=== PATIENT | male | born 1950 | race Caucasian/White ===

== ENCOUNTER 2018-06-13 08:34 | Outpatient (CLI) | payer MEDICARE, BC ==
[2018-06-13] VITALS (12 sets, daily range): BP systolic 139–167; BP diastolic 77–87
[~2018-06-13] VITALS: Ht 182.9 cm; Wt 95.0 kg
[2018-06-13] MEDS ORDERED: regadenoson 0.4mg/5ml syringe IV PRN (09:40)
[2018-06-13] MEDS ORDERED: aminophylline 250mg/10ml inj. IV PRN (09:40)
[2018-06-13] MEDS ORDERED: nitroGLYCERIN 0.4mg SUBLingual tab SL PRN (09:40)
[2018-06-13] MEDS ORDERED: regadenoson 0.4mg/5ml syringe IV ONE (10:23)
[2018-06-13] MEDS ORDERED: aminophylline inj. 10 ML IV ONE (10:23)
== END 2018-06-13 23:59 | disposition home or self-care (01) ==
LOC: RAD 08:34
PROVIDERS: ATTEND Internal Medicine Cardiovascular Disease
DX: R94.39 Abnormal result of other cardiovascular function study (principal); E78.5 Hyperlipidemia, unspecified; I10 Essential (primary) hypertension; Z87.891 Personal history of nicotine dependence
CPT/HCPCS: 78452; 93017; A9500; J0280

== ENCOUNTER 2018-07-11 09:57 | Day surgery (SDC) | payer MEDICARE, BC ==
[2018-07-10 11:27] LABS: BASOPHILS % (AUTO) 0.6 % (0-1); EOSINOPHILS # (AUTO) 0.4 X10'3 (0-0.9); EOSINOPHILS % (AUTO) 6.9 % (0-6); HEMATOCRIT 41.8 % (42.0-52.0); LYMPHOCYTES # (AUTO) 1.5 X10'3 (1.1-4.8); LYMPHOCYTES % (AUTO) 26.4 % (21-51); MEAN CORPUSCULAR HEMOGLOBIN 31.7 PG (27.0-31.0); MEAN CORPUSCULAR HGB CONC 33.4 g/dL (33.0-36.5); MEAN CORPUSCULAR VOLUME 94.8 FL (78-98); MEAN PLATELET VOLUME 6.9 FL (7.4-10.4); MONOCYTES # (AUTO) 0.5 X10'3 (0-0.9); MONOCYTES % (AUTO) 9.7 % (2-12); NEUTROPHILS # (AUTO) 3.2 X10'3 (1.8-7.7); NEUTROPHILS % (AUTO) 56.4 % (42-75); PLATELET COUNT 263 X10'3 (140-440); RED BLOOD COUNT 4.41 X10'6 (4.70-6.10); RED CELL DISTRIBUTION WIDTH 13.5 % (11.5-14.5); WHITE BLOOD COUNT 5.6 X10'3 (4.5-11.0)
[2018-07-10 11:37] LABS: ALBUMIN 3.6 G/DL (3.4-5.0); ANION GAP 7 (8-16); BLOOD UREA NITROGEN 17 MG/DL (7-18); BUN/CREATININE RATIO 17.3 (5.4-32.0); CHLORIDE 102 MMOL/L (99-107); CREATININE 0.98 MG/DL (0.60-1.10); GLUCOSE 84 MG/DL (70-104); POTASSIUM 4.2 MMOL/L (3.5-5.1); SODIUM 139 MMOL/L (135-145); TOTAL CARBON DIOXIDE 30.4 MMOL/L (24-32); eGFR 76 ML/MIN
[2018-07-10 11:41] LABS: PARTIAL THROMBOPLASTIN TIME 27 SECONDS (22-32); PROTHROMBIN TIME 10.1 SECONDS (9.0-12.0)
[~2018-07-11] VITALS: Ht 182.9 cm; Wt 98.7 kg
[2018-07-11] VITALS (12 sets, daily range): BP systolic 105–140; BP diastolic 63–88
[2018-07-11] MEDS ORDERED: normal saline 1000ml 1,000 ML IV SCH (10:20)
[2018-07-11] MEDS ORDERED: diphenhydrAMINE 25mg capsule PO PRN (10:20)
[2018-07-11] MEDS ORDERED: LORazepam 0.5 MG tablet PO PRN (10:20)
[2018-07-11] MEDS ORDERED: BENA1TAB79 PO (10:32)
[2018-07-11] MEDS ORDERED: CHOL10002 PO (10:32)
[2018-07-11] MEDS ORDERED: UBID50TA3 PO (10:32)
[2018-07-11] MEDS ORDERED: OMEG-169 PO (10:32)
[2018-07-11] MEDS ORDERED: GLUC100017 PO (10:32)
[2018-07-11] MEDS ORDERED: AMLO10TA PO (10:32)
[2018-07-11] MEDS ORDERED: ATOR40TA71 PO (10:32)
[2018-07-11] MEDS ORDERED: TADA5TAB2 PO (10:32)
[2018-07-11] MEDS ORDERED: MULT-933 PO (10:32)
[2018-07-11] MEDS ORDERED: LIDOcaine/PRILOcaine 5gm cream TP ONE (11:25)
[2018-07-11] MEDS ORDERED: iohexol 350MG/ML 100ml bottle IV ONE (11:51)
[2018-07-11] MEDS ORDERED: fentaNYL/PF 50MCG/1 ML 2ML syringe ONE (11:51)
[2018-07-11] MEDS ORDERED: LIDOcaine 1% (10mg/ml)w/preservative injection 20ml MDV ONE (11:51)
[2018-07-11] MEDS ORDERED: midazolam 2 mg/2 ml injection ONE (11:51)
[2018-07-11] MEDS ORDERED: nitroGLYCERIN-Tridil 50MG/D5W 250 ML IV ONE (11:51)
[2018-07-11] MEDS ORDERED: heparin 1,000unit/ml 10ml vial 10 ML ONE (11:51)
[2018-07-11] MEDS ORDERED: iohexol 350 MG/ML 50ML vial IV ONE ×2 (11:51→13:00)
[2018-07-11] MEDS ORDERED: verapamil 2.5 mg/ml inj IV ONE (12:38)
== END 2018-07-11 18:50 | disposition home or self-care (01) ==
LOC: SSTAY O 09:57
PROVIDERS: ATTEND Internal Medicine Cardiovascular Disease
DX: I25.10 Atherosclerotic heart disease of native coronary artery without angina pectoris (principal); I10 Essential (primary) hypertension; E78.5 Hyperlipidemia, unspecified; Z79.01 Long term (current) use of anticoagulants; Z98.890 Other specified postprocedural states
CPT/HCPCS: 36415; 80048; 85025; 85610; 85730; 93005; 93458; 99152; 99153; J1644; J2001; J2250; J3010; J7030; Q0163; Q9967; A4620; C1769; J3490

== ENCOUNTER 2024-08-01 07:07 | Outpatient (CLI) | payer MEDICARE, BC ==
[~2024-08-01] VITALS: Ht 177.8 cm; Wt 104.3 kg
[~2024-08-01 07:07] MED LIST: AMLO10TA PO; ATOR40TA71 PO; BENA1TAB88 PO; CHOL10002 PO; FISH OIL 1,3601 EACH PO; GLUC100017 PO; MULT-933 PO; TADA5TAB2 PO; UBID50TA3 PO
[2024-08-01 07:35] LABS: TOTAL HEMOGLOBIN 15.2 G/dl (13.5-17.5)
[2024-08-01] MEDS: albuterol 2.5 MG/3 ML nebule NEB ONE (08:08)
[2024-08-01 08:15] VITALS: PULSE 76; RESP 15; O2SAT 98
[2024-08-01 08:28] VITALS: PULSE 76; RESP 15
== END 2024-08-01 23:59 | disposition home or self-care (01) ==
LOC: RT 07:07
PROVIDERS: ATTEND Internal Medicine
DX: R06.02 Shortness of breath (principal)
CPT/HCPCS: 85018; 94060; 94727; 94729; 94760

== ENCOUNTER 2024-11-07 06:57 | Day surgery (SDC) | payer MEDICARE, BC ==
[2024-11-06 11:13] LABS: BASOPHILS % (AUTO) 0.5 % (0-1); EOSINOPHILS # (AUTO) 0.2 X10'3 (0-0.9); EOSINOPHILS % (AUTO) 2.6 % (0-6); HEMATOCRIT 45.7 % (42.0-52.0); HEMOGLOBIN 15.2 g/dl (14.0-17.9); LYMPHOCYTES # (AUTO) 1.6 X10'3 (1.1-4.8); LYMPHOCYTES % (AUTO) 21.1 % (21-51); MEAN CORPUSCULAR HEMOGLOBIN 32.7 PG (27.0-31.0); MEAN CORPUSCULAR HGB CONC 33.2 g/dL (33.0-36.5); MEAN CORPUSCULAR VOLUME 98.6 FL (78-98); MEAN PLATELET VOLUME 7.1 FL (7.4-10.4); MONOCYTES # (AUTO) 0.6 X10'3 (0-0.9); MONOCYTES % (AUTO) 8.2 % (2-12); NEUTROPHILS % (AUTO) 67.6 % (42-75); PLATELET COUNT 223 X10'3 (140-440); RED BLOOD COUNT 4.64 X10'6 (4.70-6.10); RED CELL DISTRIBUTION WIDTH 14.8 % (11.5-14.5); WHITE BLOOD COUNT 7.4 X10'3 (4.5-11.0)
[2024-11-06 11:24] LABS: INR 1.1 INR; PROTHROMBIN TIME 11.3 SECONDS (9.0-12.0)
[2024-11-06 12:50] LABS: ALBUMIN 3.3 G/DL (3.4-5.0); ANION GAP 7 (8-16); BLOOD UREA NITROGEN 16 MG/DL (7-18); BUN/CREATININE RATIO 10.8 (10.0-20.0); CHLORIDE 102 MMOL/L (99-107); CREATININE 1.48 MG/DL (0.60-1.10); GLUCOSE 101 MG/DL (70-104); POTASSIUM 4.6 MMOL/L (3.5-5.1); SODIUM 137 MMOL/L (135-145); TOTAL CARBON DIOXIDE 27.8 MMOL/L (24-32); eGFR 46 ML/MIN
[~2024-11-07] VITALS: Ht 182.9 cm; Wt 101.9 kg
[2024-11-07] MEDS ORDERED: atropine 0.1mg/ml 10ml syringe IV ONE (07:20)
[2024-11-07] MEDS ORDERED: morphine 10mg/ml inj. IV ONE (07:20)
[2024-11-07] MEDS ORDERED: MIDAZolam 1mg/ml 10ml vial IV ONE (07:20)
[2024-11-07] MEDS ORDERED: LORazepam 0.5 MG tablet PO ONE (07:20)
[2024-11-07] MEDS ORDERED: amiodarone 150mg/dext, iso-os 100 ML IV ONE (07:20)
[2024-11-07] MEDS ORDERED: normal saline 1000ml 1,000 ML IV SCH (07:20)
[2024-11-07] MEDS ORDERED: diphenhydrAMINE 25mg capsule PO ONE (07:20)
--- NOTE | 2024-11-07 07:24 | ELECTROCARDIOGRAPH REPORT ---
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 CRISTIANE Storm Measurements Intervals [place] Rate: 107 P: 69 NM: 137 QRS: -29 QRSD: 153 T: 3 QT: 379 QTc: 506 Interpretive Statements Atrial flutter with two-to-one block. Probable left ventricular hypertrophy Prolonged QT interval Electronically Signed On 11-07-2024 15:15:[address] CRISTIANE Storm Please click the below link to view image of tracing.
[2024-11-07 07:45] VITALS: BP 147/102; PULSE 97; RESP 16; TEMP 98.1; O2SAT 97
[2024-11-07] MEDS ORDERED: fentaNYL/PF 50MCG/1 ML 2ML syringe ONE (07:52)
[2024-11-07] MEDS ORDERED: midazolam 1 mg/ML 2ml injection ONE (07:52)
[2024-11-07] MEDS ORDERED: ROSU40TA89 PO (08:27)
[2024-11-07] MEDS ORDERED: CHOL500050 PO (08:27)
[2024-11-07] MEDS ORDERED: APIX5TAB3 PO (08:27)
[2024-11-07] MEDS ORDERED: MONT-40 PO (08:27)
[2024-11-07] MEDS ORDERED: BUPR-726 PO (08:27)
[2024-11-07] MEDS ORDERED: [UNRECOGNIZED DRUG - CODE] PO (08:27)
[2024-11-07] MEDS ORDERED: FLEC100T2 PO (08:27)
[2024-11-07] MEDS ORDERED: FAMO10TA41 PO (08:27)
[2024-11-07] MEDS ORDERED: DILT90CA PO (08:27)
[2024-11-07] MEDS ORDERED: CARV25TA2 PO (08:27)
[2024-11-07] MEDS ORDERED: FEXO180T94 PO (08:27)
[2024-11-07] MEDS ORDERED: SILD100T70 PO (08:27)
[2024-11-07] MEDS ORDERED: FURO20TA4 PO (08:27)
[2024-11-07 09:10] VITALS: RESP 16; O2SAT 97
[2024-11-07 09:22] VITALS: BP 143/66; PULSE 78; RESP 11; O2SAT 97
--- NOTE | 2024-11-07 09:23 | ELECTROCARDIOGRAPH REPORT ---
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 CRISTIANE Storm Measurements Intervals [place] Rate: 78 P: 32 ME: 210 QRS: -8 QRSD: 120 T: -37 QT: 412 QTc: 470 Interpretive Statements Sinus rhythm Left atrial enlargement Left ventricular hypertrophy Nonspecific T abnormalities, inferior leads Electronically Signed On 11-07-2024 15:15:[address] CRISTIANE Storm Please click the below link to view image of tracing.
[2024-11-07 09:30] VITALS: BP 128/87; PULSE 78; RESP 14; O2SAT 94
[2024-11-07 09:46] VITALS: BP 127/94; PULSE 80; RESP 15; O2SAT 95
[2024-11-07 10:05] VITALS: BP 126/87; PULSE 78; RESP 14; O2SAT 94
--- NOTE | 2024-11-07 10:08 | CARDIOLOGY REPORT ---
DATE OF SERVICE: 11/07/2024 DICTATING PHYSICIAN: CRISTIANE Bagley MD [employer] PRIMARY PHYSICIAN: Osvaldo Pinedo MD SALES ADMINISTRATION MANAGER: CRISTIANE Bagley MD INDICATION: The patient is a 74-year-old male with history of hyperlipidemia, sleep apnea, hypertension, CAD, and atrial flutter. The patient had nonobstructive severe cardiac cath back in 2019. The patient has a history of prior atrial flutter, which was noted back on 09/27/2024. The patient was started on anticoagulation, Eliquis, and flecainide, and he is on carvedilol 50 mg p.o. b.i.d. After discussing risks, benefits, alternative options, the patient prefers to proceed with definitive treatment with electrical cardioversion. Risks, benefits, and alternative options discussed. Informed consent obtained. Posterior patches were used using biphasic exposure of 150 joules to convert to normal sinus rhythm and remained in normal sinus rhythm. IMPRESSION: A 74-year-old male with persistent atrial flutter with 2:1 block converted to normal sinus rhythm. RECOMMENDATIONS: Continue flecainide, carvedilol, and Eliquis. The patient recommended diet, weight loss, and exercise program. The patient does have a history of sleep apnea and history of pulmonary fibrosis. Recommend followup with Dr. Holman for further evaluation of the sleep study. CRISTIANE Bagley MD TID: [id number] RECEIPT: [id number] /HALLE/ЕЛЕНА cc: Alli Holman MD, Osvaldo Pinedo MD [facility]
== END 2024-11-07 10:25 | disposition home or self-care (01) ==
LOC: SSTAY O 06:57
PROVIDERS: ATTEND Internal Medicine Cardiovascular Disease
DX: I48.91 Unspecified atrial fibrillation (principal); I25.10 Atherosclerotic heart disease of native coronary artery without angina pectoris; I48.92 Unspecified atrial flutter; I10 Essential (primary) hypertension; G47.30 Sleep apnea, unspecified; E78.5 Hyperlipidemia, unspecified; Z79.899 Other long term (current) drug therapy; Z79.01 Long term (current) use of anticoagulants
CPT/HCPCS: 36415; 80048; 85025; 85610; 92960; 93005; J2250; J3010; J7030; Z7610; 99152

== ENCOUNTER 2024-12-12 06:57 | Day surgery (SDC) | payer MEDICARE, BC ==
[2024-12-11 12:09] LABS: MEAN PLATELET VOLUME 7.2 FL (7.4-10.4); RED CELL DISTRIBUTION WIDTH 14.6 % (11.5-14.5)
[2024-12-11 12:14] LABS: CREATININE 1.30 MG/DL (0.60-1.10); TOTAL CARBON DIOXIDE 29.9 MMOL/L (24-32); eGFR 54 ML/MIN
[2024-12-11 12:16] LABS: INR 1.1 INR
[~2024-12-12] VITALS: Ht 182.9 cm; Wt 103.4 kg
[~2024-12-12 06:57] MED LIST changes: -AMLO10TA PO; +APIX5TAB3 PO; -ATOR40TA71 PO; -BENA1TAB88 PO; +BUPR-726 PO; +CARV25TA2 PO; -CHOL10002 PO; +CHOL500050 PO; +DILT90CA PO; +FAMO10TA41 PO; +FEXO180T94 PO; -FISH OIL 1,3601 EACH PO; +FLEC100T2 PO; +FURO20TA4 PO; +MONT-40 PO; +ROSU40TA89 PO; +SILD100T70 PO; -TADA5TAB2 PO; +[UNRECOGNIZED DRUG - CODE] PO
--- NOTE | 2024-12-12 07:17 | ELECTROCARDIOGRAPH REPORT ---
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 CRISTIANE Storm Measurements Intervals [place] Rate: 76 P: 38 CA: 236 QRS: 2 QRSD: 133 T: -8 QT: 447 QTc: 503 Interpretive Statements Sinus rhythm Prolonged CA interval IVCD, consider atypical LBBB Electronically Signed On 12-12-2024 19:16:[address] CRISTIANE Storm Please click the below link to view image of tracing.
[2024-12-12] MEDS ORDERED: amiodarone 150mg/dext, iso-os 100 ML IV ONE (07:20)
[2024-12-12] MEDS ORDERED: morphine 10mg/ml inj. IV ONE (07:20)
[2024-12-12] MEDS ORDERED: MIDAZolam 1mg/ml 10ml vial IV ONE (07:20)
[2024-12-12] MEDS ORDERED: normal saline 1000ml 1,000 ML IV SCH (07:20)
[2024-12-12] MEDS ORDERED: atropine 0.1mg/ml 10ml syringe IV ONE (07:20)
== END 2024-12-12 08:20 | disposition home or self-care (01) ==
LOC: SSTAY O 06:57
PROVIDERS: ATTEND Internal Medicine Cardiovascular Disease
DX: I48.91 Unspecified atrial fibrillation (principal); Z53.8 Procedure and treatment not carried out for other reasons; I25.10 Atherosclerotic heart disease of native coronary artery without angina pectoris; I10 Essential (primary) hypertension; E78.5 Hyperlipidemia, unspecified; I48.92 Unspecified atrial flutter; G47.39 Other sleep apnea; Z79.899 Other long term (current) drug therapy; Z90.49 Acquired absence of other specified parts of digestive tract; Z96.651 Presence of right artificial knee joint; Z98.890 Other specified postprocedural states; Z80.0 Family history of malignant neoplasm of digestive organs
CPT/HCPCS: 36415; 80048; 85025; 85610; 93005; J7030